=== PATIENT | female | born 1990 | race Caucasian/White ===

== ENCOUNTER 2020-07-12 14:21 | Emergency (ER) | payer SELFPAY ==
[~2020-07-12] VITALS: Ht 167.6 cm; Wt 59.0 kg
[2020-07-12 14:31] VITALS: BP 138/100
--- NOTE | 2020-07-12 16:12 | NUR ---
Patient discharged to home in stable condition. Written and verbal after care instructions given. Patient verbalizes understanding of instruction. Pt ambulatory with a steady gait
== END 2020-07-12 16:14 | disposition home or self-care (01) ==
LOC: ER 14:28
DX: S90.32XA Contusion of left foot, initial encounter (principal); Z86.16 Personal history of COVID-19; X58.XXXA Exposure to other specified factors, initial encounter; Y93.89 Activity, other specified; Y92.89 Other specified places as the place of occurrence of the external cause; Y99.8 Other external cause status
CPT/HCPCS: 93971-TC